=== PATIENT | male | born 1995 | race African-American/Black ===

== ENCOUNTER 2019-08-09 12:06 | Emergency (ER) | payer SELFPAY ==
[2019-08-09] MEDS ORDERED: Ibuprofen TAB* 800 MG PO ONE (13:47)
--- NOTE | 2019-08-09 13:49 | ED ---
Lower Extremity - HPI Summary HPI Summary: Pt. is a 24 y.o male who presents to the ER for pain to posterior right upper leg x 1 day. Pt. states he had a muscle injury to area about a year ago and occassionally gets pain. 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 He is unaware of any injuries. Pt. states he only had a short drive to the area. Sxs are mild in severity. Movement makes sxs worse. Rest makes sxs better. - History of Current Complaint Chief Complaint: EDExtremityLower Stated Complaint: RT HAMSTRING INJ PER PER Time Seen by Provider: 08/09/19 12:46 Hx Obtained From: Patient Pain Intensity: 4 - Allergies/Home Medications Allergies/Adverse Reactions: Allergies Allergy/AdvReac Type Severity Reaction Status Date / Time No Known Allergies Allergy Verified 08/09/19 12:17 PMH/Surg Hx/FS Hx/Imm Hx Previously Healthy: Yes Infectious Disease History: No Infectious Disease History: Denies: Traveled Outside the [place] in Last 30 Days - Social History Occupation: Employed Full-time Lives: With Family Alcohol Use: Occasionally Substance Use Type: Reports: None Smoking Status (MU): Never Smoked Tobacco Review of Systems Positive: Other - right posterior leg pain. Skin: Negative Neurological: Negative Negative: Weakness, Paresthesia, Numbness All Other Systems Reviewed And Are Negative: Yes Physical Exam Triage Information Reviewed: Yes Vital Signs On Initial Exam: Initial Vitals Temp Pulse Resp BP Pulse Ox 98.4 F 77 18 92/62 99 08/09/19 12:17 08/09/19 12:17 08/09/19 12:17 08/09/19 12:17 08/09/19 12:17 Vital Signs Reviewed: Yes Appearance: Positive: Well-Appearing - Pt. sitting on chair in NAD. Skin: Positive: Warm, Dry Head/Face: Positive: Normal Head/Face Inspection Eyes: Positive: Normal, EOMI Neck: Positive: Supple Musculoskeletal: Positive: Normal, Strength/ROM Intact - 5/5 strength in right leg. No edema or calf pain. Pain on palpation to right posterior leg. No rash, redness, or induration. Neurological: Positive: Normal, CN Intact II-III Psychiatric: Positive: Affect/Mood Appropriate Procedures - Sedation Patient Received Moderate/Deep Sedation with Procedure: No Diagnostics - Vital Signs Vital Signs Temp Pulse Resp BP Pulse Ox 08/09/19 12:17 98.4 F 77 18 92/62 99 - Laboratory Lab Statement: Any lab studies that have been ordered have been reviewed, and results considered in the medical decision making process. Lower Extremity Course/Dx - Course Course Of Treatment: Examine consistant with muslce strain. Pt. requesting work excuse. NSAIDs for pain. To ice and rest leg. Will f.u with [facility] if needed. - Diagnoses Differential Diagnosis/HQI/PQRI: Positive: Contusion, Sprain, Strain Provider Diagnoses: Muscle strain Discharge ED - Sign-Out/Discharge Documenting (check all that apply): Patient Departure - Discharge Plan Condition: Good Disposition: HOME Patient Education Materials: Muscle Strain (ED) Forms: *Work Release Referrals: [facility] [Outside] Additional Instructions: Follow up with the [facility] if needed Ice and elevate intermittently Ibuprofen for pain as directed Gentle stretching Return to ER if symptoms change or worsen - Billing Disposition and Condition Condition: GOOD Disposition: Home - Attestation Statements Provider Attestation: I was available for consultation for this patient. I did not evaluate the patient, or participate in any medical decision making or disposition decisions unless I am specifically named in the chart as having consulted on the patient. If I have consulted on the patient, please see my own ED note on the patient encounter. Rosy Wesley MD
[2019-08-09 14:18] VITALS: BP 93/66
== END 2019-08-09 14:15 | disposition home or self-care (01) ==
LOC: ED 12:06
DX: S76.811A Strain of other specified muscles, fascia and tendons at thigh level, right thigh, initial encounter (principal); X58.XXXA Exposure to other specified factors, initial encounter; Y92.9 Unspecified place or not applicable
CPT/HCPCS: 99282; A9270-GY